=== PATIENT | male | born 1985 | race Caucasian/White ===

== ENCOUNTER 2017-07-12 07:36 | Emergency (ER) | payer MEDICARE, MEDICAID, SELFPAY ==
[2017-07-12] VITALS (9 sets, daily range): BP systolic 112–140; BP diastolic 62–85; PULSE 71–118; RESP 14–56; TEMP 36.7; O2SAT 93–100; BMI 27.3
--- NOTE | 2017-07-12 07:55 | EKG12_ITS ---
Test Reason : MHC Blood Pressure : / mmHG Vent. Rate : 107 BPM Atrial Rate : 107 BPM P-R Int : 146 ms QRS Dur : 090 ms QT Int : 332 ms P-R-T Axes : 052 019 017 degrees QTc Int : 443 ms Sinus tachycardia Nonspecific T wave abnormality Abnormal ECG Confirmed by DAVE SHIELDS ([id number]), online content editor MARYAM ROSS ([id number]) on 07/16/2017 9:49:38 AM Referred By: IRINA Confirmed By:DAVE SHIELDS
--- NOTE | 2017-07-12 07:59 | NURSING ---
NO OLD EKGS
[2017-07-12 08:42] LABS: Absolute Lymphocyte Count 3.09 X10^3/ul (0.83-4.51); Absolute Neutrophil Count 20.9 X10^3/uL (2.0-7.7); Basophil# 0.05 X10^3/uL; Basophil% 0.2 % (0-1); Eosinophil# 0.23 X10^3/uL; Eosinophils% 0.9 % (0-5); Hematocrit 41.2 % (40-54); Hemoglobin 13.8 g/dl (13.0-16.5); Lymphocyte # 3.09 X10^3/ul (4.0); Lymphocyte % 12.1 % (19-41); Mean Corp Hgb Conc 33.5 g/gl (32-36); Mean Corpuscular Hgb 30.5 pg (27.0-32.0); Mean Corpuscular Volume 90.9 fL (80-94); Mean Platelet Vol. 10.2 fl (6.2-12.0); Monocyte# 1.13 X10^3/uL; Monocyte% 4.4 % (0-10); Neutrophil # 20.94 X10^3/uL (2.7-7.7); Platelet Count 255 K/mm3 (150-450); RBC Distribution Width SD 46.1 fl (35.1-43.9); Red Blood Count 4.53 M/mm3 (4.6-6.2); White Blood Count 25.5 K/mm3 (4.4-11.0)
[2017-07-12 08:49] LABS: Differential Indicated SCAN CRITERIA MET; POSITIVE COUNT NO; POSITIVE DIFFERENTIAL YES; POSITIVE MORPHOLOGY NO
[2017-07-12 08:53] LABS: AST(SGOT) 12 U/L (15-37); Alanine Aminotransfer ALT/SGPT 24 U/L (12-78); Albumin, Serum 3.9 g/dL (3.4-5.0); Alkaline Phosphatase 88 U/L (45-117); Anion Gap 10 (5-15); BUN 9 mg/dL (7-18); BUN/Creat Ratio 9.5 RATIO (10-20); Bilirubin, Direct 0.15 mg/dL (0.00-0.30); Calcium,Total 8.9 mg/dL (8.5-10.1); Chloride 102 mmol/L (98-107); Creatinine, Serum 0.95 mg/dL (0.70-1.30); EST Glomerular Filtration Rate 99 mL/min (>60); Est Glom Filt Rate - Afr Amer 119 mL/min (>60); Globulin 3.7 g/dL (2.2-4.2); Glucose 96 mg/dL (70-110); Potassium 3.6 mmol/L (3.5-5.1); Protein, Total 7.6 g/dL (6.4-8.2); Sodium Level 137 mmol/L (136-145)
[2017-07-12 09:20] LABS: Salicylate 5.5 mg/dL (2.8-20.0)
[2017-07-12] MEDS: 0.9% Normal Saline 1,000 ML 999 ML IV (09:41)
[2017-07-12] MEDS: Ondansetron 4 MG/2 ML Vial IV (09:41)
[2017-07-12 10:02] LABS: Acetaminophen (Tylenol) Level < 2.0 ug/mL (10.0-30.0)
[2017-07-12 10:03] LABS: Alcohol, Blood (Medical)-Serum < 3.0 mg/dL
[2017-07-12 10:28] LABS: Amphetamine Urine VISTA NEGATIVE (<1000 ng/mL); Barbiturate Urine VISTA NEGATIVE (< 200 ng/mL); Benzodiazepine Urine VISTA NEGATIVE (< 200 ng/mL); Cocaine Urine VISTA NEGATIVE (< 300 ng/mL); Ecstacy Urine VISTA NEGATIVE (< 500 ng/mL); Methadone Urine VISTA NEGATIVE (< 300 ng/mL); PCP Urine VISTA NEGATIVE (< 25 ng/mL); THC Urine VISTA POSITIVE (< 50 ng/mL); Vista UDS pH Range 6
--- NOTE | 2017-07-12 10:37 | RAD_ITS ---
STUDY: X-RAY CHEST REASON FOR EXAM: Male, 32 years old. Leukocytosis. TECHNIQUE: PA and lateral views of the chest. COMPARISON: None. FINDINGS: EKG electrodes are seen. The lungs are clear and expanded. Scattered calcified granulomas. There is no demonstrated pleural abnormality. Normal size heart. Normal mediastinum and adrián. Normal visualized pulmonary arteries. Normal visualized aortic arch and descending thoracic aorta. Normal visualized thoracic spine. Normal visualized ribs, clavicles, and shoulders. There is no demonstrated abnormality of the visualized soft tissue structures of the upper abdomen. RAD/Chest PA and Lateral IMPRESSION: Normal x-ray examination of the chest. Electronically Signed: You Rodrigues MD at 11:05 EST Tel [phone], Service support ,
[2017-07-12 11:14] LABS: Bacteria 0 SEEN /hpf (None Seen); Mucous, Urine 0 SEEN /hpf (<or=2+); Red Blood Cells-Urine 0 SEEN /hpf (0-5); Squamous Epithelial Cells - UA 0 SEEN /hpf (0-5); White Blood Cells 0 SEEN /hpf (0-5)
[2017-07-12 11:16] LABS: Color, Urine Yellow (Yellow); Glucose, Dipstick Normal (Normal); Ketone-Dipstick 50 mg/dl (Negative); Leukocyte Esterase-Dipstick Negative /ul (Negative); Nitrite-Dipstick Negative (Negative); Occult Blood-Urine Negative /ul (Negative); Protein-Dipstick Negative (Negative); Urine Bilirubin Dipstick Negative (Negative); Urine Clarity Clear (Clear); Urine Urobilinogen Normal (Normal)
--- NOTE | 2017-07-12 11:23 | ED.RN ---
PHARMACY DOES NOT HAVE INVEGA AND NO THERAPEUTIC INTERCHANGE. SPOKE WITH DR AREVALO ABOUT THE SAME. PT OFFERED GEODON WHICH HE AGREES TO. DR AREVALO TO ENTER ORDER
[2017-07-12] MEDS: Ziprasidone IM 20 MG/ML VIAL 10 MG IM ×2 (11:34→20:31)
--- NOTE | 2017-07-12 12:55 | ED.DCSUM_ITS ---
- ER Visit Summary Date of Service: 07/12/17 Chief Complaint: Schizophrenia worsening History of Present Illness: The patient is a 32 M to the counseling center. He reports that he has had increasing auditory hallucinations, feels as though other people are controlling his body and the TV is speaking to him. This is been worsening over the course the past few weeks. He continues to take his medications without relief. He reports that today he took 500 mg of trazodone and 2 g of niacin at 7 AM not because he is suicidal but to control his symptoms. Physical Examination: Vitals: Stable. Afebrile. General: Well-nourished and well-developed. Head: Normocephalic atraumatic. Neck: Supple, no lymphadenopathy. No JVD. Nontender. Cardiovascular: Regular rate and rhythm. No murmurs. Respiratory: No respiratory distress. Clear to auscultation bilaterally. Abdominal: Soft, nontender, nondistended, normal bowel sounds. No guarding, rebound, or peritoneal signs. Back: Nontender. Extremities: Nontender, no edema. Skin: Normal color, no rash. Neurologic: Alert and oriented ?3. Cranial nerves II through XII are intact. Normal strength and sensation. Mental status exam: Patient appears their stated age. Good posture and grooming. Good eye contact. Normal rate, volume, and latency of speech. No suicidal or homicidal ideation. Complains of auditory and visual hallucinations. Delusional and paranoid. Test Results: CBC is marked for white count 25.5, segmented neutrophils 82 and lymphocytes of 12. Because of this a chest x-ray obtained and was normal. Urinalysis was negative. Chem-7 is normal. LFTs marked for an AST of 12. Tox screen shows marijuana. Blood alcohol level 0. EKG sinus tachycardia 107 with normal intervals. Emergency Department Course and Treatment: Patient asked for his Invega. That is not available to us. He was given Geodon IM. He is resting comfortably. Treatment Plan: The patient will be seen by the counseling center in the emergency department for further evaluation and disposition. Disposition: Pending Impression: 1. Schizophrenia, acute exacerbation. This note was generated with [employer] software. It may contain incorrect words, spelling, and punctuation that were not noted in review of the chart prior to signing <Guanako Lawson - Last Filed: 07/12/17 12:49> - ER Visit Summary Date of Service: 07/12/17 Patient has been accepted to [facility] for [facility]. This note was generated with [employer] dictation software. It may contain incorrect words, spelling, and punctuation that were not noted in review of the chart prior to signing <Volodymyr Darnell - Last Filed: 07/12/17 22:53> ED Disposition <Guanako Lawson - Last Filed: 07/12/17 12:49> <Volodymyr Darnell - Last Filed: 07/12/17 22:53> - Plan for ED Patient: Chief Complaint: Mental Health Referrals: Care Physician,No Primary [Primary Care Provider] -
--- NOTE | 2017-07-12 12:56 | NURSING ---
[facility] WILL CALL BACK
--- NOTE | 2017-07-12 14:41 | NURSING ---
TALKED TO JESIKA BREWSTER. HE'S ON MEDSURG AND PCU WITH PATIENTS. [facility] WILL BE COMING TO SEE OUR PATIENT
--- NOTE | 2017-07-12 15:14 | NURSING ---
[facility], [facility], HERE
[2017-07-12 17:21] LABS: Absolute Lymphocyte Count 2.98 X10^3/ul (0.83-4.51); Absolute Neutrophil Count 11.1 X10^3/uL (2.0-7.7); Basophil# 0.02 X10^3/uL; Basophil% 0.1 % (0-1); Eosinophil# 0.14 X10^3/uL; Eosinophils% 0.9 % (0-5); Hematocrit 37.8 % (40-54); Hemoglobin 12.6 g/dl (13.0-16.5); Lymphocyte # 2.98 X10^3/ul (4.0); Lymphocyte % 19.7 % (19-41); Mean Corp Hgb Conc 33.3 g/gl (32-36); Mean Corpuscular Hgb 30.7 pg (27.0-32.0); Mean Corpuscular Volume 92.2 fL (80-94); Mean Platelet Vol. 10.3 fl (6.2-12.0); Monocyte# 0.82 X10^3/uL; Monocyte% 5.4 % (0-10); Neutrophil # 11.12 X10^3/uL (2.7-7.7); Neutrophil % 73.6 % (47-70); Platelet Count 237 K/mm3 (150-450); RBC Distribution Width SD 46.5 fl (35.1-43.9); White Blood Count 15.1 K/mm3 (4.4-11.0)
[2017-07-12 17:23] LABS: POSITIVE COUNT NO; POSITIVE DIFFERENTIAL NO; POSITIVE MORPHOLOGY NO
--- NOTE | 2017-07-12 20:09 | ED.RN ---
[facility] pending acceptance at this time. They request a Sed rate at this time. order placed at this time
[2017-07-12 21:02] LABS: Erythrocyte Sedimentation Rate 14 mm/hr (0-15)
[2017-07-13] VITALS (9 sets, daily range): BP systolic 101–124; BP diastolic 56–89; PULSE 70–99; RESP 14–15; TEMP 36.1; O2SAT 91–99
--- NOTE | 2017-07-13 00:58 | NURSING ---
[facility] called for transport. ETA will be a couple hours. unable to given a better time frame at this time
--- NOTE | 2017-07-13 01:00 | ED.RN ---
[facility] called and denied the transport at this time due to not willing to transport patient after 8 pm.
--- NOTE | 2017-07-13 01:04 | ED.RN ---
[facility] called and unable to transport at this time. unable to do transport in the morning at this time. asking to call back in the morning after 8 am to see if they are able to do the transport
--- NOTE | 2017-07-13 01:11 | ED.RN ---
[facility] and unable to do transport at this time
[2017-07-13] MEDS: Ziprasidone IM 20 MG/ML VIAL 10 MG IM (07:55)
== END 2017-07-13 08:28 ==
PROVIDERS: Emergency Medicine; Emergency Provider Emergency Medicine
DX: F20.89 Other schizophrenia (principal); F12.90 Cannabis use, unspecified, uncomplicated; Z72.0 Tobacco use; Z79.899 Other long term (current) drug therapy
CPT/HCPCS: 71046; 80048; 80076; 80307; 80320; 80329; 81001; 85025; 85652; 93005; 96361; 96372; 96374; 99285; J7030; A4216; G0480; J2405; J3486